=== PATIENT | female | born 1965 | race Caucasian/White ===

== ENCOUNTER 2019-12-30 13:00 | Day surgery (SDC) | payer OTHER ==
[~2019-12-30] VITALS: Ht 172.7 cm; Wt 97.1 kg
[~2019-12-30 13:00] MED LIST: ARAVA10 MG PO; DOXYCYCLINE HY100 MG PO; FOLIC ACID20 MG PO; HYZAAR 100-251 EACH PO; METFORMIN HCL1000 M2 PO; NOXIFOL-D32500 UNIT PO; TYLENOL-CODEINE1 TAB PO
[2019-12-31] MEDS ORDERED: Tylenol #3 PO (09:01)
== END 2019-12-31 08:00 | disposition home or self-care (01) ==
LOC: CIR.AMB 13:00 → OB/GYN 17:28 → O/R 17:28 → CIR.AMB 12-31 08:00 → O/R 12-31 11:53 → OB/GYN 12-31 11:53 → CIR.AMB 12-31 13:00
PROVIDERS: ATTEND Obstetrics & Gynecology
DX: N80.0 Endometriosis of uterus (principal); D25.1 Intramural leiomyoma of uterus; N81.11 Cystocele, midline

== ENCOUNTER 2020-10-18 12:57 | Outpatient (CLI) | payer OTHER ==
[~2020-10-18 12:57] MED LIST changes: +Tylenol #3 PO
== END 2020-10-18 13:10 | disposition home or self-care (01) ==
LOC: SONOGRAMA 12:57
PROVIDERS: ATTEND Internal Medicine Rheumatology
DX: M75.51 Bursitis of right shoulder (principal); M05.79 Rheumatoid arthritis with rheumatoid factor of multiple sites without organ or systems involvement